=== PATIENT | female | born 1965 | race Caucasian/White ===

== ENCOUNTER 2024-07-23 03:10 | Emergency (ER) | payer BC ==
[~2024-07-23] VITALS: Ht 175.3 cm; Wt 61.4 kg
[2024-07-23 03:16] VITALS: PULSE 91
[2024-07-23] MEDS ORDERED: LORazepam 2 mg/ml vial IM ONE (03:35)
[2024-07-23] MEDS ORDERED: FLO0.4C PO (03:37)
[2024-07-23 03:49] VITALS: BP 125/75; RESP 18; TEMP 98.7; O2SAT 98
== END 2024-07-23 03:52 | disposition home or self-care (01) ==
LOC: ER 03:11
DX: K64.9 Unspecified hemorrhoids (principal); K59.00 Constipation, unspecified
CPT/HCPCS: 99281